=== PATIENT | female | born 1980 | race Caucasian/White ===

== ENCOUNTER 2017-09-03 14:47 | Emergency (ER) | payer MEDICAID ==
[~2017-09-03] VITALS: Ht 147.3 cm; Wt 59.1 kg
[~2017-09-03 14:47] MED LIST: AMBIEN10 MG PO; DIFLUCAN150 MG PO; HYDROCODON-ACE1 EAC9 PO; LOPRESSOR25 MG PO; OMEPRAZOLE20 M1 PO; VALIUM10 MG PO
[2017-09-03 14:53] VITALS: Ht 147.3 cm; Wt 59.1 kg
[2017-09-03 15:14] LABS: APPEARANCE TURBID (CLEAR); COLOR YELLOW (YELLOW); SPECIFIC GRAVITY 1.005 (1.005-1.020)
[2017-09-03 15:15] LABS: BILIRUBIN NEGATIVE (NEGATIVE); GLUCOSE NEGATIVE (NEGATIVE); KETONE NEGATIVE (NEGATIVE); NITRITE POSITIVE (NEGATIVE); PROTEIN 1+ mg/dL (NEGATIVE); UROBILINOGEN NORMAL (NORMAL); WHITE CELLS - URINE 25-50 /hpf (0-5)
[2017-09-03 15:16] LABS: BACTERIA MANY /hpf (NONE SEEN); RED CELLS - URINE 0-5 /hpf (0-5)
[2017-09-03] MEDS ORDERED: MACROBID100 MG PO (17:44)
[2017-09-03 18:51] VITALS: BP 134/75
== END 2017-09-03 18:52 | disposition home or self-care (01) ==
LOC: D.ER 14:47
PROVIDERS: Emergency Medicine
DX: M54.5 Low back pain (principal); N39.0 Urinary tract infection, site not specified

== ENCOUNTER 2019-03-17 19:51 | Emergency (ER) | payer MEDICAID ==
[~2019-03-17] VITALS: Ht 147.3 cm; Wt 59.1 kg
[~2019-03-17 19:51] MED LIST changes: +MACROBID100 MG PO
[2019-03-17 19:59] VITALS: Ht 147.3 cm; Wt 59.1 kg
[2019-03-17] MEDS ORDERED: CYCLOBENZAPRINE10 MG PO (20:01)
[2019-03-17] MEDS ORDERED: NEURONTIN 300300 MG PO (20:02)
[2019-03-17 22:17] VITALS: BP 145/109
== END 2019-03-17 22:18 | disposition home or self-care (01) ==
LOC: D.ER 19:51
DX: S80.02XA Contusion of left knee, initial encounter (principal); X58.XXXA Exposure to other specified factors, initial encounter; M25.462 Effusion, left knee

== ENCOUNTER → 2019-03-28 13:41 | Outpatient (CLI) | payer MEDICAID ==
[2019-03-17 19:59] VITALS: BMI 27.2
[~2019-03-28 13:41] MED LIST changes: +CYCLOBENZAPRINE10 MG PO; +NEURONTIN 300300 MG PO
== END | disposition home or self-care (01) ==
LOC: D.MRI 13:41
PROVIDERS: ATTEND Clinical Nurse Specialist Family Health
DX: M25.562 Pain in left knee (principal); M25.571 Pain in right ankle and joints of right foot